=== PATIENT | male | born 1955 | race Asian ===

== ENCOUNTER 2019-06-26 15:14 | Emergency (ER) | payer MEDICAID, OTHER ==
[~2019-06-26] VITALS: Ht 172.7 cm; Wt 97.2 kg
--- NOTE | 2019-06-26 15:23 | NUR ---
ekg in triage.
[2019-06-26] MEDS ORDERED: AMLO-150 PO (15:53)
[2019-06-26] MEDS ORDERED: ROSU40TA PO (15:53)
[2019-06-26] MEDS ORDERED: LISI-170 PO (15:53)
[2019-06-26] MEDS ORDERED: METF500T17 PO (15:53)
[2019-06-26] MEDS ORDERED: HYDR12.517 PO (15:53)
--- NOTE | 2019-06-26 16:00 | NUR ---
PT SITTING IN BED, PHONE IN HAND. RESPIRATIONS EVEN AND UNLABORED, NO SIGNS OF DISTRESS. PT IS A POOR HISTORIAN, POTENTIAL LANGUAGE BARRIER, PT OFFERED BARNWORKER GROOM, PT DENIED.
[2019-06-26 16:02] LABS: BASOPHILS # (AUTO) 0.13 x10^3/uL (0-0.1); BASOPHILS % (AUTO) 2 % (0-1); EOSINOPHILS # (AUTO) 0.32 x10^3/uL (0-0.4); EOSINOPHILS % (AUTO) 4 % (1-7); LYMPHOCYTES # (AUTO) 3.27 x10^3/uL (1-3.4); LYMPHOCYTES % (AUTO) 36 % (22-44); MD NO; MEAN CORPUSCULAR HEMOGLOBIN 30.3 pg (27.5-34.5); MEAN CORPUSCULAR HGB CONC 33.4 g/dL (33.2-36.2); MEAN CORPUSCULAR VOLUME 90.9 fL (81-97); MEAN PLATELET VOLUME 8.4 fL (7.4-10.4); MONOCYTES # (AUTO) 0.83 x10^3/uL (0.2-0.8); MONOCYTES % (AUTO) 9 % (2-9); NEUTROPHILS # (AUTO) 4.54 x10^3/uL (1.8-6.8); NEUTROPHILS % (AUTO) 50 % (42-75); PLATELET COUNT 280 x10^3/uL (130-400); RED BLOOD COUNT 5.11 x10^6/uL (4.38-5.82)
[2019-06-26 16:12] LABS: ALANINE AMINOTRANSFERASE 61 U/L (12-78); ALBUMIN 3.6 g/dL (3.4-5.0); ANION GAP 5 mmol/L (5-15); CALCIUM 8.8 mg/dL (8.5-10.1); CHLORIDE 110 mmol/L (98-107); CREATININE 0.88 mg/dL (0.7-1.3)
[2019-06-26 16:16] LABS: ALKALINE PHOSPHATASE 89 U/L (45-117); BILIRUBIN,TOTAL 0.7 mg/dL (0.2-1.0); TOTAL PROTEIN 7.5 g/dL (6.4-8.2); TROPONIN I < 0.015 ng/mL (0.000-0.045)
[2019-06-26 16:31] VITALS: BP 146/91
--- NOTE | 2019-06-26 16:31 | NUR ---
PT AWOKE FROM SLEEPING, ERP AT BEDSIDE, UPDATING PT ON POC.
== END 2019-06-26 16:46 | disposition home or self-care (01) ==
LOC: ED 15:37
DX: R05 Cough (principal); L20.9 Atopic dermatitis, unspecified; R07.9 Chest pain, unspecified; I10 Essential (primary) hypertension; E11.9 Type 2 diabetes mellitus without complications; I25.2 Old myocardial infarction
CPT/HCPCS: 36415; 71045; 80053; 84484; 85025; 93005; 99285